=== PATIENT | female | born 1960 | race Caucasian/White ===

== ENCOUNTER 2016-07-11 08:54 | Emergency (ER) | payer OTHER ==
[2016-07-11 09:18] VITALS: BP 136/93; PULSE 83; RESP 18; TEMP 98.1; O2SAT 97
[2016-07-11 09:31] LABS: COLOR YELLOW; LEUKOCYTE ESTERASE,URINE NEGATIVE (NEGATIVE); NITRITE,URINE NEGATIVE (NEGATIVE)
[2016-07-11 09:49] LABS: % IMMATURE GRANULYOCYTES 0.1 % (0.0-1.1); ABSOLUTE IMMATURE GRANULOCYTES 0.01 10^3/uL (0.00-0.10); ADD DIFF? NO; ADD MORPH? NO; ADD SCAN? NO; ATYPICAL LYMPHOCYTE FLAG 0 (0-99); FRAGMENT RBC FLAG 0 (0-99); HEMATOCRIT 46.3 % (38.0-47.0); HEMOGLOBIN 15.5 g/dL (12.6-16.3); LEFT SHIFT FLG 0 (0-99); LIPEMIA HEMOLYSIS FLAG 80 (0-99); MEAN CELL HEMOGLOBIN 32.4 pg (27.9-34.1); MEAN CELL HEMOGLOBIN CONCENTR. 33.5 g/dL (32.4-36.7); MEAN CELL VOLUME 96.9 fL (81.5-99.8); MEAN PLATELET VOLUME 9.8 fL (8.7-11.7); PLATELET CLUMPS FLAG 0 (0-99); PLATELET COUNT 270 10^3/uL (150-400); RED BLOOD CELL COUNT 4.78 10^6/uL (4.18-5.33); RED CELL DISTRIBUTION WIDTH 12.1 % (11.5-15.2)
[2016-07-11] MEDS ORDERED: HYOSCYAMINE SULFATE 0.125 MG TAB PO ONE (10:10)
[2016-07-11 10:12] LABS: ANION GAP 13 mEq/L (8-16); CALCIUM 9.5 mg/dL (8.5-10.4); CARBON DIOXIDE 27 mEq/l (22-31); CHLORIDE 103 mEq/L (97-110); CREATININE 0.7 mg/dL (0.6-1.0); GLOMERULAR FILTRATION RATE > 60; GLUCOSE 84 mg/dL (70-100); POTASSIUM 4.3 mEq/L (3.5-5.2); SODIUM 143 mEq/L (134-144)
--- NOTE | 2016-07-11 10:13 | UCPHY ---
H & P Patient Type: New Chief Complaint Nursing Narrative: DEVELOPED LOWER ABDOMINAL PAIN YESTERDAY, FEELS LIKE CRAMPING AND IS WORSE ON THE LEFT SIDE, NORMAL BM YESTERDAY, DENIES N /V Time Seen by Provider: 07/11/16 09:18 HPI/ROS: This patient with history of IBS reports some crampy lower abdominal pain is worse in the left lower quadrant than elsewhere. She has loose stools at baseline typically 2-3 days and has noticed any change in her stools. She reports the discomfort is 6/10 in intensity at its peak. Symptoms worsened slightly with movement. No other exacerbating factors. Symptoms came on this morning during an 8 mi run. She maintains a good appetite and had a normal breakfast this morning. ROS: No fevers or chills. No other constitutional symptoms. HEENT: No complaints. No nasal congestion. Pulmonary: No shortness of breath. Cardiovascular: No lightheadedness. No lower extremity swelling. : No symptoms. GI as per HPI. 10 point ROS is otherwise negative. Source: Patient Exam Limitations: No limitations - Medical/Surgical History PMH: IBS Hx Asthma: No Hx Chronic Respiratory Disease: No Hx Diabetes: No Hx Cardiac Disease: No Hx Renal Disease: No Hx Alcoholism: No Hx HIV/AIDS: No Hx Splenectomy or Spleen Trauma: No Other PMH: IBS - Family History Significant Family History: No pertinent family hx - Social History Smoking Status: Former smoker Alcohol Use: Occasionally Drug Use: None - Physical Exam Exam: General Appearance: Alert, no distress. Eyes: Pupils equal and round no pallor or injection. ENT, Mouth: Mucous membranes moist. Respiratory: There are no retractions, lungs are clear to auscultation. Cardiovascular: Regular rate and rhythm. No peripheral edema. No pulsatile masses in the belly Gastrointestinal: Hyperactive bowel sounds with mild left lower quadrant tenderness. No guarding or rebound. No organomegaly. Back: No CVA tenderness Neurological: Alert with no focal deficits Skin: Warm and dry, no rashes. Musculoskeletal: Neck is supple nontender. Extremities are symmetrical, full range of motion. Psychiatric: Mood and affect normal DIFFERENTIAL DIAGNOSIS: After history and physical exam differential diagnosis was considered for IBS with crampy pain. Diverticulitis. UTI. Constitutional: Initial Vital Signs Temperature (C) 36.7 C 07/11/16 09:16 Heart Rate 83 07/11/16 09:16 Respiratory Rate 18 07/11/16 09:16 Blood Pressure 136/93 H 07/11/16 09:16 O2 Sat (%) 97 07/11/16 09:16 O2 Delivery Mode Room Air Allergies/Adverse Reactions: No Known Allergies Allergy (Unverified 07/11/16 09:16) Home Medications: Medication Instructions Recorded Estradiol/Levonorgestrel [Climara 07/11/16 Pro Patch] HYOSCYAMINE SULFATE [LEVSIN-SL] 0.125 - 0.25 mg SL Q4 PRN #20 07/11/16 tab.subl Medical Decision Making ED Course/Re-evaluation: Levsin sublingual with improvement in her crampy discomfort. Her urinalysis is normal. Her CBC is normal A counselor regarding her discomfort I think is a consistent with IBS or food intolerance. She has a benign belly exam and normal UA that rules out UTI and given lack of fevers or white count and not think she has diverticulitis. - Data Points Laboratory Results: Laboratory Results 07/11/16 09:45 07/11/16 09:45 07/11/16 07/11/16 07/11/16 09:45 09:45 09:25 WBC 8.43 10^3/uL 10^3/uL (3.80-9.50) RBC 4.78 10^6/uL 10^6/uL (4.18-5.33) Hgb 15.5 g/dL g/dL (12.6-16.3) Hct 46.3 % % (38.0-47.0) MCV 96.9 fL fL (81.5-99.8) MCH 32.4 pg pg (27.9-34.1) MCHC 33.5 g/dL g/dL (32.4-36.7) RDW 12.1 % % (11.5-15.2) Plt Count 270 10^3/uL 10^3/uL (150-400) MPV 9.8 fL fL (8.7-11.7) Neut % (Auto) 74.1 % % (39.3-74.2) Lymph % (Auto) 19.2 % % (15.0-45.0) Isabella % (Auto) 6.0 % % (4.5-13.0) Eos % (Auto) 0.2 % L % (0.6-7.6) Baso % (Auto) 0.4 % % (0.3-1.7) Nucleat RBC Rel Count 0.0 % % (0.0-0.2) Absolute Neuts (auto) 6.24 10^3/uL 10^3/uL (1.70-6.50) Absolute Lymphs (auto) 1.62 10^3/uL 10^3/uL (1.00-3.00) Absolute Monos (auto) 0.51 10^3/uL 10^3/uL (0.30-0.80) Absolute Eos (auto) 0.02 10^3/uL L 10^3/uL (0.03-0.40) Absolute Basos (auto) 0.03 10^3/uL 10^3/uL (0.02-0.10) Absolute Nucleated RBC 0.00 10^3/uL 10^3/uL (0-0.01) Immature Gran % 0.1 % % (0.0-1.1) Immature Gran # 0.01 10^3/uL 10^3/uL (0.00-0.10) Sodium 143 mEq/L mEq/L (134-144) Potassium 4.3 mEq/L mEq/L (3.5-5.2) Chloride 103 mEq/L mEq/L (97-110) Carbon Dioxide 27 mEq/l mEq/l (22-31) Anion Gap 13 mEq/L mEq/L (8-16) BUN 11 mg/dL mg/dL (7-23) Creatinine 0.7 mg/dL mg/dL (0.6-1.0) Estimated GFR > 60 Glucose 84 mg/dL mg/dL (70-100) Calcium 9.5 mg/dL mg/dL (8.5-10.4) Urine Color YELLOW Urine Appearance CLEAR Urine pH 7.0 (5.0-7.5) Ur Specific [employer] <= 1.005 (1.002-1.030) Urine Protein NEGATIVE (NEGATIVE) Urine Ketones NEGATIVE (NEGATIVE) Urine Blood NEGATIVE (NEGATIVE) Urine Nitrate NEGATIVE (NEGATIVE) Urine Bilirubin NEGATIVE (NEGATIVE) Urine Urobilinogen 0.2 EU EU (0.2-1.0) Ur Leukocyte Esterase NEGATIVE (NEGATIVE) Urine Glucose NEGATIVE (NEGATIVE) Medications Given: Discontinued Medications Hyoscyamine Sulfate (Levsin, Hyomax-Sl) 0.125 mg PO EDNOW ONE Stop: 07/11/16 10:11 Last Admin: 07/11/16 10:31 Dose: 0.125 mg Departure - Departure Disposition: Home, Routine, Self-Care Clinical Impression: Abdominal cramping in left lower quadrant Condition: Good Instructions: Abdominal Pain (ED) Additional Instructions: Diagnosis: Crampy left lower quadrant abdominal pain Your blood count is normal today & your exam is reassuring. I think that your pain is resulting from increased bowel squeeze/activity to the area that you feel cramping. Plan: Levsin if needed for abdominal cramping Drink plenty fluids Light diet to feel improved Follow up with primary care physician if her symptoms persist despite the treatment plan. Good the emergency department for any significant worsening despite the treatment plan. Referrals: Curtis Amaya MD [Primary Care Provider] - As per Instructions Prescriptions: HYOSCYAMINE SULFATE [LEVSIN-SL] 0.125 - 0.25 mg SL Q4 PRN #20 tab.subl PRN Reason: cramping - PQRS PQRS Measurement: NA
== END 2016-07-11 10:31 | disposition home or self-care (01) ==
LOC: CED 08:54
DX: R10.32 Left lower quadrant pain (principal); Z87.891 Personal history of nicotine dependence
CPT/HCPCS: 80048-PO; 81003-PO; 85025-PO; 99204-PO; G0463-PO